=== PATIENT | male | born 1995 | race Hispanic/Latino ===

== ENCOUNTER 2024-05-26 21:08 | Emergency (ER) | payer SELFPAY ==
[2024-05-26 21:22] VITALS: BP 146/110; PULSE 122; RESP 20; TEMP 36.9; O2SAT 96; BMI 34.3
--- NOTE | 2024-05-26 21:56 | ED.PSYCH ---
HPI - Psych General Chief Complaint: Psychiatric Symptoms Stated Complaint: Paranoia Time Seen by Provider: 05/26/24 21:11 Source: patient Mode of arrival: Ambulatory History of Present Illness HPI Narrative: 29-year-old male with no reported past medical history presents with law enforcement escort for paranoia. Patient was at a gas station reportedly asking for help and law enforcement was brought in. Patient told law enforcement that he was around some scratchy people and he felt like he was being watched. On arrival patient tells me that he has been ?smoking clear? for the last 2 days and has not had any sleep. He clarifies that ?clear? is methamphetamines. He denies wanting to harm himself, he denies wanting to harm anyone else. He reports frustration that he has not been able to sleep. He states that he was able to call a ride to bring him home, and he trusts the person he called and as long as that person takes him home he feels safe. Related Data Allergies Allergy/AdvReac Type Severity Reaction Status Date / Time No Known Drug Allergies Allergy Verified 05/26/24 21:32 Patient History Social History Smoking Status: Never smoker Smoking Status: Never smoker alcohol intake frequency: 0-2 drinks per day Alcohol type: beer Substance Use Type: marijuana Exam Initial Vital Signs Initial Vital Signs: Vital Signs Temperature 98.4 F 05/26/24 21:22 Pulse Rate 122 H 05/26/24 21:22 Respiratory Rate 20 05/26/24 21:22 Blood Pressure 146/110 H 05/26/24 21:22 Pulse Oximetry 96 05/26/24 21:22 Oxygen Delivery Method Room Air 05/26/24 21:22 Const: Awake, alert, nontoxic appearing Cardiac: tachycardia, regular rhythm RESP: unlabored, clear bilaterally Skin: Warm, Dry, intact, no rashes Neuro: AO x3, CN II-XII grossly intact, moves all extremities Course Orders Ordered: Discontinued Medications Lorazepam (Lorazepam 0.5 Mg Tablet) 2 mg PO NOW ONE Stop: 05/26/24 21:57 Last Admin: 05/26/24 22:01 Dose: 2 mg Documented By: LINDA Vital Signs Vital signs: Vital Signs - 8 hr 05/26/24 21:22 05/26/24 22:45 Temperature 98.4 F Pulse Rate 122 H 116 H Respiratory Rate 20 20 Blood Pressure 146/110 H 130/92 H Pulse Oximetry 96 99 Oxygen Delivery Method Room Air Room Air MDM - Psych MDM Narrative Medical decision making narrative: Paranoia and agitation after 2 days of smoking methamphetamines and no sleep. Patient denies wanting to harm himself or anyone else. He says that he has a sober ride that he can call that he feels safe going home with. Patient was given a small amount of Ativan to help with agitation and discharged in stable condition. He states that he was already in the process of talking to a facility about undergoing detox and he was established and their system already. He declines any additional resources at this time. Discharge Plan Departure Patient Disposition: Home Clinical Impression: Methamphetamine use Instructions: DI for Substance Use Disorder Activity Restrictions/Additional Instructions: Continue to follow up with your outpatient treatment for amphetamine use. Amphetamine use can affect sleep and increased thoughts of paranoia. Stand Alone Forms: Patient Portal/API
[2024-05-26] MEDS: LORazepam 0.5 MG TABLET 2 MG PO (22:01)
[2024-05-26 22:45] VITALS: BP 130/92; PULSE 116; RESP 20; O2SAT 99
== END 2024-05-26 22:46 | disposition home or self-care (01) ==
PROVIDERS: Emergency Provider Emergency Medicine
DX: F15.10 Other stimulant abuse, uncomplicated (principal)
CPT/HCPCS: 99283